=== PATIENT | male | born 1995 | race Caucasian/White ===

== ENCOUNTER 2021-03-17 10:45 | Emergency (ER) | payer MEDICAID ==
[~2021-03-17] VITALS: Ht 172.7 cm; Wt 65.8 kg
[2021-03-17 10:45] VITALS: BP 141/102
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
[2021-03-17 11:16] VITALS: BP 141/102
== END 2021-03-17 11:15 ==
LOC: MED 10:45
DX: F10.129 Alcohol abuse with intoxication, unspecified (principal); R03.0 Elevated blood-pressure reading, without diagnosis of hypertension; Z02.89 Encounter for other administrative examinations; V49.9XXA Car occupant (driver) (passenger) injured in unspecified traffic accident, initial encounter; Y93.89 Activity, other specified; Y92.89 Other specified places as the place of occurrence of the external cause; Y99.8 Other external cause status
CPT/HCPCS: 99281; 99283